=== PATIENT | female | born 1955 | race Two or more races ===

== ENCOUNTER 2021-01-30 18:20 | Inpatient (IN) ==
[2021-01-30 18:44] VITALS: BMI 42.7
[2021-01-30] MEDS ORDERED: SOLU-MEDROL 125 MG IVP STA (18:44)
[2021-01-30] MEDS ORDERED: VENTOLIN HFA (PER PUFF-WITH SPACER) IH ONE (18:44)
--- NOTE | 2021-01-30 18:44 | ED.PDOC ---
General ED Provider: Dr. CHEKO PINEDA MD Chief Complaint: Respiratory Complaint Stated Complaint: mild to mod off and on dry cough for a few days, getting worse, +short of breath, no pain, no fever, +ARGUETA Time Seen by Provider: 01/30/21 18:27 Nursing and Triage Documentation Reviewed and Agree: Yes Does patient meet sepsis criteria?: No System Inflammatory Response Syndrome: Not Applicable Sepsis Protocol: For patient's 13 years and over: Temp is 96.8 and below OR 101 and greater Pulse >90 BPM Resp >20/minute Acutely Altered Mental Status Are patient's symptoms suggestive of a new infection, such as: -Pneumonia -Skin, Soft Tissue -Endocarditis -UTI -Bone, Joint Infection -Implantable Device -Acute Abdominal Infection -Wound Infection -Meningitis -Blood Stream Catheter Infection -Unknown Review of Systems Review Of Systems Constitutional: Reports Malaise; Denies Fever Eyes: Denies Vision change Ears, Nose, Mouth, Throat: Denies Throat pain Respiratory: Reports Cough and Short of air; Denies Stridor Cardiac: Denies Chest pain GI: Denies Abdominal pain : Denies Dysuria Musculoskeletal: Denies Neck pain Skin: Denies Rash Neurological: Denies Cognitive dysfunction All Other Systems: Other Physical Exam Physical Exam Appearance: Reports Ill-appearing Ill-appearing: Mild Pain Distress: None Eyes: Reports ELIZABETH, EOMI and Conjunctiva clear ENT: Reports Oropharynx normal Neck: Supple Respiratory: Reports Airway patent and Wheezes Cardiovascular: Reports RRR GI/: Reports Soft and Nontender Musculoskeletal: Reports ROM intact Skin: Reports Warm and Dry Neurological: Reports Alert and Oriented Psychiatric: Reports Affect appropriate Critical Care Note Critical Care Note Total Critical Care Time (mins): 0 Course Course Orders, Labs, Meds: Orders Category Date Time Status ABG DRAW REQUEST Stat CARDIO 01/30/21 18:40 Ordered EKG-(ED ONLY) Stat CARDIO 01/30/21 18:40 Ordered OXYGEN [ED APPLY O2] .ONCE EMERGENCY 01/30/21 18:40 Ordered ABG COOX Stat LAB 01/30/21 18:41 Ordered BLOOD CULTURE Stat LAB 01/30/21 18:40 Ordered BNP [NT-PROBNP] Stat LAB 01/30/21 Ordered D-DIMER Stat LAB 01/30/21 Ordered LACTIC ACID Stat LAB 01/30/21 18:40 Ordered RESPIRATORY PANEL 2.1 (PCR) Stat LAB 01/30/21 Ordered TROPONIN I Stat LAB 01/30/21 18:40 Ordered UA [URINALYSIS C & S IF INDICATED] Stat LAB 01/30/21 18:40 Uncollected CHEST, 1V AP ONLY Stat RADS 01/30/21 18:40 Ordered Discharge Plan Discharge ED Provider: CHEKO PINEDA Physician Progress Note: []care to Dr Jones at 19:00
[2021-01-30 18:47] LABS: ABG O2 HGB 91.2 % (95-100); BEecf -0.6 (-2.0-3.0); COHb 0.9 (0.5-1.5); HCO3 22.6 (21-28); MetHb 1.7 (0-1.5); TCO2 23.5 (19-24); sO2 92.2 % (94-98); tHb 11.9 g/dl (11.7-17.4)
[2021-01-30 19:15] LABS: TROPONIN I < 0.012 ng/ml (0.0000-0.120)
[2021-01-30 19:18] LABS: BASOPHILS % (AUTO) 0.2 % (0.0-3.0); EOSINOPHILS % (AUTO) 0.2 % (0.0-7.0); IMMATURE GRANULOCYTE % (AUTO) 0.2 % (0.0-5.0); LYMPHOCYTES # (AUTO) 0.9 K/uL (0.60-3.4); LYMPHOCYTES % (AUTO) 21.8 (10.0-50.0); MEAN CORPUSCULAR HEMOGLOBIN 29.5 pg (27.0-31.0); MEAN CORPUSCULAR HGB CONC 32.5 (31.8-35.4); MEAN CORPUSCULAR VOLUME 90.9 fl (81.0-99.0); MONOCYTES # (AUTO) 0.4 K/uL (0.4-2.0); MONOCYTES % (AUTO) 8.9 (0-10); NEUTROPHILS # (AUTO) 2.8 K/ul (2.0-6.9); NEUTROPHILS % (AUTO) 68.7 % (42.2-75.2); PLATELET COUNT 116 10^3/uL (140-440); WHITE BLOOD COUNT 4.03 K/ul (4.6-10.2)
[2021-01-30 19:25] LABS: ALANINE AMINOTRANSFERASE 70.2 U/L (0-35); ALBUMIN 4.06 g/dL (3.5-5.0); ALKALINE PHOSPHATASE 99.4 U/L (53-141); BILIRUBIN,TOTAL 0.35 mg/dL (0.2-1.3); BLOOD UREA NITROGEN 9.7 mg/dL (7-17); CALCIUM 8.96 mg/dL (8.4-10.2); CARBON DIOXIDE 24.5 mmol/L (22-30.0); CHLORIDE 107.1 mmol/L (98-107); CREATININE 0.53 mg/dL (0.60-1.30); GLUCOSE 175.4 mg/dL (74-106); POTASSIUM 3.42 mmol/L (3.5-5.1); SODIUM 139.7 mmol/L (134.5-145); TOTAL PROTEIN 7.34 g/dL (6.3-8.2)
--- NOTE | 2021-01-30 20:21 | DI ---
EXAM: Chest, single view HISTORY: Cough COMPARISON: COVID-19. Shortness of breath FINDINGS / IMPRESSION: Cardiomediastinal contours appear mildly enlarged. There is central pulmonary vascular congestion wi th diffuse interstitial infiltrate. Limited anatomic detail within the lung bases. These findings m ay relate to pulmonary edema and/or pneumonia. Small pleural effusions are not excluded. No pneumot horax.
[2021-01-30] MEDS ORDERED: VEKLURY 200 MG in SODIUM CHLORIDE 250 ML IV ONE (20:32)
[2021-01-30] MEDS ORDERED: VENTOLIN HFA (PER PUFF-WITH SPACER) IH SCH (21:00)
[2021-01-30] MEDS ORDERED: ROCEPHIN 1 GM/50 ML D5W 1 GM/50 ML BAG IV STA (21:04)
[2021-01-30] MEDS ORDERED: ZITHROMAX PO STA (21:06)
[2021-01-31] MEDS ORDERED: ROCEPHIN 1 GM/50 ML D5W 1 GM/50 ML BAG IV STA (00:22)
[2021-01-31] MEDS ORDERED: ZITHROMAX PO STA (00:22)
[2021-01-31] MEDS: SYMBICORT 160-4.5 MCG INHALER IH SCH ×3 (00:32→20:30)
[2021-01-31 05:17] LABS: ABG O2 HGB 91.1 % (95-100); ABG PH 7.45 (7.35-7.45); BEecf -0.4 (-2.0-3.0); COHb 1.9 (0.5-1.5); HCO3 23.6 (21-28); MetHb 0.9 (0-1.5); TCO2 24.6 (19-24); sO2 91.8 % (94-98); tHb 15.7 g/dl (11.7-17.4)
[2021-01-31] MEDS: VENTOLIN HFA (PER PUFF-WITH SPACER) IH SCH ×3 (05:20→20:10)
[2021-01-31] MEDS: PEPCID PO SCH ×2 (05:32→17:42)
[2021-01-31] MEDS ORDERED: VENTOLIN HFA (PER PUFF-WITH SPACER) IH SCH (06:00)
[2021-01-31 06:38] LABS: BASOPHILS % (AUTO) 0.4 % (0.0-3.0); HEMATOCRIT 39.8 % (37.0-47.0); HEMOGLOBIN 12.9 g/dl (12.0-16.0); IMMATURE GRANULOCYTE % (AUTO) 0.8 % (0.0-5.0); LYMPHOCYTES # (AUTO) 0.7 K/uL (0.60-3.4); LYMPHOCYTES % (AUTO) 27.3 (10.0-50.0); MEAN CORPUSCULAR HEMOGLOBIN 29.2 pg (27.0-31.0); MEAN CORPUSCULAR HGB CONC 32.4 (31.8-35.4); MONOCYTES # (AUTO) 0.2 K/uL (0.4-2.0); MONOCYTES % (AUTO) 7.6 (0-10); NEUTROPHILS # (AUTO) 1.5 K/ul (2.0-6.9); NEUTROPHILS % (AUTO) 63.9 % (42.2-75.2); PLATELET COUNT 131 10^3/uL (140-440); RDW COEFFICIENT OF VARIATION 13.9 % (11.6-14.8); RED BLOOD COUNT 4.42 10^6/ul (4.20-5.40); WHITE BLOOD COUNT 2.38 K/ul (4.6-10.2)
[2021-01-31 06:46] LABS: ALANINE AMINOTRANSFERASE 63.4 U/L (0-35); ALBUMIN 3.95 g/dL (3.5-5.0); ALKALINE PHOSPHATASE 86.7 U/L (53-141); ASPARTATE AMINO TRANSFERASE 101.7 U/L (14-36); BILIRUBIN,TOTAL 0.37 mg/dL (0.2-1.3); BLOOD UREA NITROGEN 9.6 mg/dL (7-17); CALCIUM 8.97 mg/dL (8.4-10.2); CARBON DIOXIDE 24.3 mmol/L (22-30.0); CHLORIDE 106.9 mmol/L (98-107); CREATININE 0.45 mg/dL (0.60-1.30); GLUCOSE 251.9 mg/dL (74-106); POTASSIUM 3.55 mmol/L (3.5-5.1); SODIUM 139.4 mmol/L (134.5-145); TOTAL PROTEIN 7.21 g/dL (6.3-8.2)
--- NOTE | 2021-01-31 06:50 | PCM.PROG ---
Date Seen by Provider: 01/31/21 Time Seen by Provider: 06:47 Subjective: This is a 65 yr old lady patient of dr wilhelm admitted with covid pneumonia. she denies any complaints today. We are awaiting home meds list. Objective: Vitals: T=98.1 F, P=94, R=26, WT=382/86, SPO2=92 HEENT: [perrla] Neck: [supple] Lungs: [rhonchi] CVS: rrr Abdomen: soft nt Extremities: [no cyanosis] Neurological: [intact] Skin: [no rashes] Lab/Tests/Diagnostic Imaging: [] (1) COVID-19: Status: Acute Code(s): U07.1 - COVID-19 SNOMED Code(s): 361819417 (2) Acute respiratory failure due to COVID-19: Status: Acute Code(s): U07.1 - COVID-19; J96.00 - Acute respiratory failure, unspecified whether with hypoxia or hypercapnia SNOMED Code(s): 050210418 Assessment: dr liv pederson --this patient is admitted to hospitalist service till dr peck returns Plan: monitoring oximetry, iv rendesivir, monitoring labs see orders
[2021-01-31 06:52] LABS: ACETAMINOPHEN < 10.0 ug/ml (10-30); BLOOD ALCOHOL < 10.0 mg/dL (0.0-50.0); SALICYLATE < 1.00 mg/dL (0-20.0)
[2021-01-31 06:52] LABS: TROPONIN I < 0.012 ng/ml (0.0000-0.120)
[2021-01-31 07:34] LABS: PROTHROMBIN TIME 10.4 SEC (9.3-11.0)
[2021-01-31] MEDS: VITAMIN D PO SCH (08:52)
[2021-01-31] MEDS: DECADRON IM SCH (08:53)
[2021-01-31] MEDS: ASPIRIN CHEWABLE PO SCH (08:53)
[2021-01-31] MEDS: ZINC-220 PO SCH (08:53)
[2021-01-31] MEDS ORDERED: LIPITOR PO SCH ×2 (09:00→21:00)
[2021-01-31] MEDS ORDERED: VEKLURY 200 MG in SODIUM CHLORIDE 250 ML IV ONE (09:00)
[2021-01-31] MEDS ORDERED: BETAPACE PO SCH (09:00)
[2021-01-31] MEDS ORDERED: LOVENOX SUBCUT SCH (09:00)
[2021-01-31] MEDS: ROBITUSSIN DM SYRUP PO PRN ×2 (11:58→19:33)
[2021-01-31] MEDS: ROCEPHIN 1 GM/50 ML D5W 1 GM/50 ML BAG IV SCH (20:00)
[2021-01-31] MEDS: ZESTRIL PO SCH (20:00)
[2021-01-31] MEDS: BETAPACE PO SCH (20:00)
[2021-01-31] MEDS: ZITHROMAX PO SCH (20:00)
[2021-01-31] MEDS: LOVENOX SUBCUT SCH (20:01)
[2021-02-01 04:08] LABS: ABG O2 HGB 91.5 % (95-100); ABG PH 7.44 (7.35-7.45); BEecf 0.3 (-2.0-3.0); COHb 1.6 (0.5-1.5); HCO3 24.5 (21-28); MetHb 0.9 (0-1.5); TCO2 25.6 (19-24); sO2 92.6 % (94-98); tHb 19.5 g/dl (11.7-17.4)
[2021-02-01] MEDS: VENTOLIN HFA (PER PUFF-WITH SPACER) IH SCH ×3 (05:00→20:05)
[2021-02-01] MEDS: PEPCID PO SCH ×2 (05:40→16:30)
[2021-02-01 06:59] LABS: BASOPHILS % (AUTO) 0.1 % (0.0-3.0); HEMATOCRIT 39.2 % (37.0-47.0); HEMOGLOBIN 12.6 g/dl (12.0-16.0); IMMATURE GRANULOCYTE % (AUTO) 0.1 % (0.0-5.0); LYMPHOCYTES # (AUTO) 1.4 K/uL (0.60-3.4); LYMPHOCYTES % (AUTO) 20.1 (10.0-50.0); MEAN CORPUSCULAR HEMOGLOBIN 29.3 pg (27.0-31.0); MEAN CORPUSCULAR HGB CONC 32.1 (31.8-35.4); MEAN CORPUSCULAR VOLUME 91.2 fl (81.0-99.0); MONOCYTES # (AUTO) 0.5 K/uL (0.4-2.0); MONOCYTES % (AUTO) 6.9 (0-10); NEUTROPHILS % (AUTO) 72.8 % (42.2-75.2); PLATELET COUNT 186 10^3/uL (140-440); WHITE BLOOD COUNT 6.92 K/ul (4.6-10.2)
[2021-02-01 07:18] LABS: PROTHROMBIN TIME 10.4 SEC (9.3-11.0)
[2021-02-01 07:25] LABS: TROPONIN I < 0.012 ng/ml (0.0000-0.120)
[2021-02-01] MEDS: ASPIRIN CHEWABLE PO SCH (08:19)
[2021-02-01] MEDS: BETAPACE PO SCH ×2 (08:19→20:20)
[2021-02-01] MEDS: VITAMIN D PO SCH (08:19)
[2021-02-01] MEDS: ZINC-220 PO SCH (08:20)
[2021-02-01] MEDS: ZESTRIL PO SCH ×2 (08:20→20:20)
[2021-02-01] MEDS: DECADRON IM SCH (08:20)
[2021-02-01] MEDS: PLAVIX PO SCH (08:20)
[2021-02-01] MEDS: TRIGLIDE PO SCH (08:20)
[2021-02-01] MEDS: NORVASC PO SCH (08:20)
[2021-02-01] MEDS: SYMBICORT 160-4.5 MCG INHALER IH SCH ×2 (08:21→20:22)
[2021-02-01] MEDS: LOVENOX SUBCUT SCH ×2 (08:22→20:23)
--- NOTE | 2021-02-01 11:14 | PCM.PROG ---
Date Seen by Provider: 02/01/21 Time Seen by Provider: 11:11 Subjective: she is feeling much better---declined Remdesivir---wanting to go home--no nursing staff concerns other than requesing something for a estrada. Objective: Vitals: T=99.8 F, P=70, R=16, PT=438/76, SPO2=93 HEENT: [perr.a] Neck: [supple] Lungs: [clear] CVS: [rrr] Abdomen: [soft nt] Extremities: [no deformity] Neurological: [no deforimity] Skin: [no rashes] Lab/Tests/Diagnostic Imaging: [] (1) COVID-19: Status: Acute Code(s): U07.1 - COVID-19 SNOMED Code(s): 915022001 (2) Acute respiratory failure due to COVID-19: Status: Acute Code(s): U07.1 - COVID-19; J96.00 - Acute respiratory failure, unspecified whether with hypoxia or hypercapnia SNOMED Code(s): 679886364 Assessment: she looks great and asked about going home Plan: i think she is ok to go home when ok with dr wilhelm service---further antbx, oxygenation per dr peck
[2021-02-01] MEDS: VEKLURY 100 MG in SODIUM CHLORIDE 250 ML IV SCH (11:31)
[2021-02-01] MEDS: ZITHROMAX PO SCH (20:20)
[2021-02-01] MEDS: LIPITOR PO SCH (20:21)
[2021-02-01] MEDS: ROCEPHIN 1 GM/50 ML D5W 1 GM/50 ML BAG IV SCH (20:21)
[2021-02-02] MEDS: VENTOLIN HFA (PER PUFF-WITH SPACER) IH SCH ×3 (05:35→20:15)
[2021-02-02] MEDS: PEPCID PO SCH ×2 (06:07→17:51)
[2021-02-02 06:21] LABS: ABG O2 HGB 90.3 % (95-100); ABG PH 7.44 (7.35-7.45); BEecf 1.6 (-2.0-3.0); COHb 0.8 (0.5-1.5); HCO3 25.8 (21-28); MetHb 1.3 (0-1.5); sO2 91.2 % (94-98)
[2021-02-02 08:05] LABS: HEMATOCRIT 38.9 % (37.0-47.0); HEMOGLOBIN 12.7 g/dl (12.0-16.0); IMMATURE GRANULOCYTE % (AUTO) 0.3 % (0.0-5.0); LYMPHOCYTES # (AUTO) 1.1 K/uL (0.60-3.4); LYMPHOCYTES % (AUTO) 15.9 (10.0-50.0); MEAN CORPUSCULAR HEMOGLOBIN 29.5 pg (27.0-31.0); MEAN CORPUSCULAR HGB CONC 32.6 (31.8-35.4); MEAN CORPUSCULAR VOLUME 90.3 fl (81.0-99.0); MONOCYTES # (AUTO) 0.5 K/uL (0.4-2.0); MONOCYTES % (AUTO) 7.1 (0-10); NEUTROPHILS # (AUTO) 5.3 K/ul (2.0-6.9); NEUTROPHILS % (AUTO) 76.7 % (42.2-75.2); PLATELET COUNT 182 10^3/uL (140-440); RDW COEFFICIENT OF VARIATION 13.9 % (11.6-14.8); RED BLOOD COUNT 4.31 10^6/ul (4.20-5.40); WHITE BLOOD COUNT 6.94 K/ul (4.6-10.2)
[2021-02-02 08:41] LABS: ALANINE AMINOTRANSFERASE 42.7 U/L (0-35); ALBUMIN 3.87 g/dL (3.5-5.0); ALKALINE PHOSPHATASE 79.9 U/L (53-141); ASPARTATE AMINO TRANSFERASE 75.9 U/L (14-36); BILIRUBIN,TOTAL 0.44 mg/dL (0.2-1.3); BLOOD UREA NITROGEN 17.9 mg/dL (7-17); CALCIUM 9.08 mg/dL (8.4-10.2); CARBON DIOXIDE 27.7 mmol/L (22-30.0); CREATININE 0.61 mg/dL (0.60-1.30); GLUCOSE 108.4 mg/dL (74-106); POTASSIUM 3.53 mmol/L (3.5-5.1); SODIUM 140.6 mmol/L (134.5-145); TOTAL PROTEIN 7.28 g/dL (6.3-8.2)
[2021-02-02] MEDS: ASPIRIN CHEWABLE PO SCH (09:32)
[2021-02-02] MEDS: VITAMIN D PO SCH (09:32)
[2021-02-02] MEDS: ZINC-220 PO SCH (09:33)
[2021-02-02] MEDS: PLAVIX PO SCH (09:33)
[2021-02-02] MEDS: BETAPACE PO SCH ×2 (09:33→21:01)
[2021-02-02] MEDS: NORVASC PO SCH (09:33)
[2021-02-02] MEDS: TRIGLIDE PO SCH (09:33)
[2021-02-02] MEDS: ZESTRIL PO SCH ×2 (09:34→21:01)
[2021-02-02] MEDS: DECADRON IM SCH (09:34)
[2021-02-02] MEDS: SYMBICORT 160-4.5 MCG INHALER IH SCH ×2 (09:35→21:00)
[2021-02-02] MEDS: LOVENOX SUBCUT SCH ×2 (09:35→21:01)
[2021-02-02 11:11] LABS: C-REACTIVE PROTEIN 39 mg/L (0-10)
[2021-02-02] MEDS: VEKLURY 100 MG in SODIUM CHLORIDE 250 ML IV SCH (13:03)
[2021-02-02] MEDS ORDERED: NITROSTAT SL PRN (15:20)
[2021-02-02] MEDS ORDERED: ATROPINE SULFATE PFS IVP PRN (15:20)
[2021-02-02] MEDS: TYLENOL PO PRN (15:48)
[2021-02-02] MEDS: ROCEPHIN 1 GM/50 ML D5W 1 GM/50 ML BAG IV SCH (21:00)
[2021-02-02] MEDS: LIPITOR PO SCH (21:00)
--- NOTE | 2021-02-02 23:13 | PCM.PROG ---
Date Seen by Provider: 02/02/21 Time Seen by Provider: 12:00 Subjective: Date of admit 01/31 with dx of COVID pneumonia with hypoxia. Says she feels somewhat better. Full code, patient of Dr. Dumas. Objective: Vitals: T=97.9 F, P=60, R=20, QW=062/59, SPO2=95 HEENT: [WNL] Neck: [WNL] Lungs: [No wheezes, decreased breath sounds.] CVS: [RRR , no m] Abdomen: [soft] Extremities: [intact] Neurological: [intact] Skin: [intact] Lab/Tests/Diagnostic Imaging: [see chart] (1) Pneumonia due to 2019-nCoV: Status: Acute Code(s): U07.1 - COVID-19; J12.82 - Pneumonia due to coronavirus disease 2018 SNOMED Code(s): 514486015006044802 Assessment: On rocephin, refused remdesivir. See orders. (2) Acute respiratory failure due to COVID-19: Status: Acute Code(s): U07.1 - COVID-19; J96.00 - Acute respiratory failure, unspecified whether with hypoxia or hypercapnia SNOMED Code(s): 084228262 Assessment: On vapotherm per RT, I believe is currently 100% O2 at 40 L. Maintaining sat in low 90's plus. Full code. Plan: 1. COVID pneumonia - continue current tx, rocephin, refused rem. 2. Resp. failure - on vapotherm and holding OK. RT following closely.
[2021-02-03] MEDS: VENTOLIN HFA (PER PUFF-WITH SPACER) IH SCH ×3 (04:30→20:55)
[2021-02-03 05:24] LABS: HEMATOCRIT 37.3 % (37.0-47.0); HEMOGLOBIN 12.1 g/dl (12.0-16.0); IMMATURE GRANULOCYTE % (AUTO) 0.6 % (0.0-5.0); LYMPHOCYTES # (AUTO) 1.1 K/uL (0.60-3.4); MEAN CORPUSCULAR HEMOGLOBIN 29.2 pg (27.0-31.0); MEAN CORPUSCULAR HGB CONC 32.4 (31.8-35.4); MEAN CORPUSCULAR VOLUME 89.9 fl (81.0-99.0); MONOCYTES # (AUTO) 0.5 K/uL (0.4-2.0); MONOCYTES % (AUTO) 6.5 (0-10); NEUTROPHILS # (AUTO) 5.5 K/ul (2.0-6.9); NEUTROPHILS % (AUTO) 77.9 % (42.2-75.2); PLATELET COUNT 199 10^3/uL (140-440); RDW COEFFICIENT OF VARIATION 13.7 % (11.6-14.8); RED BLOOD COUNT 4.15 10^6/ul (4.20-5.40); WHITE BLOOD COUNT 7.09 K/ul (4.6-10.2)
[2021-02-03 05:33] LABS: ABG O2 HGB 85.3 % (95-100); ABG PH 7.49 (7.35-7.45); BEecf 3.4 (-2.0-3.0); COHb 1.1 (0.5-1.5); HCO3 26.7 (21-28); MetHb 0.6 (0-1.5); TCO2 27.8 (19-24); sO2 85.5 % (94-98)
[2021-02-03 05:41] LABS: ALANINE AMINOTRANSFERASE 35.6 U/L (0-35); ALBUMIN 3.67 g/dL (3.5-5.0); ALKALINE PHOSPHATASE 76.5 U/L (53-141); ASPARTATE AMINO TRANSFERASE 60.8 U/L (14-36); BILIRUBIN,TOTAL 0.47 mg/dL (0.2-1.3); BLOOD UREA NITROGEN 16.9 mg/dL (7-17); CALCIUM 9.38 mg/dL (8.4-10.2); CARBON DIOXIDE 26.4 mmol/L (22-30.0); CHLORIDE 107.3 mmol/L (98-107); CREATININE 0.59 mg/dL (0.60-1.30); GLUCOSE 100.4 mg/dL (74-106); POTASSIUM 3.54 mmol/L (3.5-5.1); SODIUM 139.9 mmol/L (134.5-145); TOTAL PROTEIN 6.99 g/dL (6.3-8.2)
[2021-02-03] MEDS: TYLENOL PO PRN (05:44)
[2021-02-03] MEDS: PEPCID PO SCH ×2 (05:44→17:10)
[2021-02-03] MEDS: LOVENOX SUBCUT SCH ×2 (09:58→21:38)
[2021-02-03] MEDS: DECADRON IM SCH (09:59)
[2021-02-03] MEDS: VITAMIN D PO SCH (09:59)
[2021-02-03] MEDS: ZINC-220 PO SCH (10:00)
[2021-02-03] MEDS: ASPIRIN CHEWABLE PO SCH (10:00)
[2021-02-03] MEDS: ZESTRIL PO SCH ×2 (10:00→21:37)
[2021-02-03] MEDS: NORVASC PO SCH (10:00)
[2021-02-03] MEDS: PLAVIX PO SCH (10:00)
[2021-02-03] MEDS: BETAPACE PO SCH ×2 (10:00→21:38)
[2021-02-03] MEDS: TRIGLIDE PO SCH (10:01)
[2021-02-03] MEDS: SYMBICORT 160-4.5 MCG INHALER IH SCH ×2 (12:23→21:48)
[2021-02-03] MEDS: VEKLURY 100 MG in SODIUM CHLORIDE 250 ML IV SCH (19:19)
[2021-02-03] MEDS ORDERED: ROCEPHIN 1 GM/50 ML D5W 1 GM/50 ML BAG IV SCH (21:00)
[2021-02-03] MEDS: ROCEPHIN 1 GM/50 ML D5W 1 GM/50 ML BAG IV SCH (21:37)
[2021-02-03] MEDS: LIPITOR PO SCH (21:38)
[2021-02-04] MEDS: VENTOLIN HFA (PER PUFF-WITH SPACER) IH SCH ×3 (04:15→21:40)
[2021-02-04 05:04] LABS: HEMATOCRIT 37.6 % (37.0-47.0); HEMOGLOBIN 12.2 g/dl (12.0-16.0); IMMATURE GRANULOCYTE # (AUTO) 0.1 (0.0-1.0); IMMATURE GRANULOCYTE % (AUTO) 0.7 % (0.0-5.0); LYMPHOCYTES # (AUTO) 1.1 K/uL (0.60-3.4); MEAN CORPUSCULAR HEMOGLOBIN 29.2 pg (27.0-31.0); MEAN CORPUSCULAR HGB CONC 32.4 (31.8-35.4); MONOCYTES # (AUTO) 0.4 K/uL (0.4-2.0); MONOCYTES % (AUTO) 5.8 (0-10); NEUTROPHILS # (AUTO) 5.6 K/ul (2.0-6.9); NEUTROPHILS % (AUTO) 78.5 % (42.2-75.2); PLATELET COUNT 242 10^3/uL (140-440); RDW COEFFICIENT OF VARIATION 13.7 % (11.6-14.8); RED BLOOD COUNT 4.18 10^6/ul (4.20-5.40); WHITE BLOOD COUNT 7.18 K/ul (4.6-10.2)
[2021-02-04 05:22] LABS: ALANINE AMINOTRANSFERASE 31.2 U/L (0-35); ALBUMIN 3.51 g/dL (3.5-5.0); ALKALINE PHOSPHATASE 74.2 U/L (53-141); ASPARTATE AMINO TRANSFERASE 52.1 U/L (14-36); BILIRUBIN,TOTAL 0.49 mg/dL (0.2-1.3); BLOOD UREA NITROGEN 21.1 mg/dL (7-17); CALCIUM 9.21 mg/dL (8.4-10.2); CARBON DIOXIDE 25.3 mmol/L (22-30.0); CHLORIDE 108.1 mmol/L (98-107); CREATININE 0.56 mg/dL (0.60-1.30); GLUCOSE 97.7 mg/dL (74-106); POTASSIUM 3.54 mmol/L (3.5-5.1); SODIUM 140.9 mmol/L (134.5-145); TOTAL PROTEIN 6.88 g/dL (6.3-8.2)
[2021-02-04] MEDS: PEPCID PO SCH ×2 (05:55→17:10)
[2021-02-04 08:12] LABS: ABG O2 HGB 96.7 % (95-100); BEecf 2.3 (-2.0-3.0); COHb 0.6 (0.5-1.5); HCO3 24.8 (21-28); MetHb 1.1 (0-1.5); TCO2 25.7 (19-24); sO2 99.3 % (94-98); tHb 12.4 g/dl (11.7-17.4)
[2021-02-04 08:13] LABS: ABG PH 7.54 (7.35-7.45)
[2021-02-04] MEDS: DECADRON IM SCH (09:27)
[2021-02-04] MEDS: LOVENOX SUBCUT SCH (09:27)
[2021-02-04] MEDS: ZINC-220 PO SCH (09:28)
[2021-02-04] MEDS: VITAMIN D PO SCH (09:28)
[2021-02-04] MEDS: BETAPACE PO SCH ×2 (09:28→20:22)
[2021-02-04] MEDS: ZESTRIL PO SCH ×2 (09:29→20:22)
[2021-02-04] MEDS: ASPIRIN CHEWABLE PO SCH (09:29)
[2021-02-04] MEDS: PLAVIX PO SCH (09:29)
[2021-02-04] MEDS: NORVASC PO SCH (09:29)
[2021-02-04] MEDS: TRIGLIDE PO SCH (09:29)
[2021-02-04] MEDS: SYMBICORT 160-4.5 MCG INHALER IH SCH ×2 (09:37→20:31)
[2021-02-04] MEDS: VEKLURY 100 MG in SODIUM CHLORIDE 250 ML IV SCH (12:27)
[2021-02-04] MEDS: ROCEPHIN 1 GM/50 ML D5W 1 GM/50 ML BAG IV SCH (20:22)
[2021-02-04] MEDS: LIPITOR PO SCH (20:22)
--- NOTE | 2021-02-05 00:21 | PCM.PROG ---
Date Seen by Provider: 02/04/21 Time Seen by Provider: 09:00 Subjective: Admit date 01/31. Dx COVID pneumonia with hypoxia. See HPI. No new complaints, just tired. Objective: Vitals: T=98.4 F, P=49, R=19, ET=604/60, SPO2=90 HEENT: [wnl] Neck: supple[] Lungs: [rhonchi, diminished] CVS: [rrr] Abdomen: [soft] Extremities: intact Neurological: [intact] Skin: wnl[] Lab/Tests/Diagnostic Imaging: [See chart. Follow ABG's] (1) Pneumonia due to 2019-nCoV: Status: Acute Code(s): U07.1 - COVID-19; J12.82 - Pneumonia due to coronavirus disease 2019 SNOMED Code(s): 490008236238615603 Assessment: On remdesivir and decadron. Standard tx. Empiric abx as well. (2) Acute respiratory failure due to COVID-19: Status: Acute Code(s): U07.1 - COVID-19; J96.00 - Acute respiratory failure, unspecified whether with hypoxia or hypercapnia SNOMED Code(s): 803638280 Assessment: Maintaining oxygen sat low to mid 90's vapotherm with mask. RT managing. Following ABG's. Full code. Plan: 1. COVID pneumonia - continue rem. and decadron, abx, no changes. 2. Hypoxia - maximizing vapotherm with mask, O2 sat still over 90, so continue to monitor.
[2021-02-05] MEDS: ATIVAN IVP PRN ×8 (00:30→23:23)
[2021-02-05] MEDS ORDERED: HALDOL IVP ONE (02:52)
[2021-02-05] MEDS: VENTOLIN HFA (PER PUFF-WITH SPACER) IH SCH ×3 (04:30→20:30)
[2021-02-05] MEDS ORDERED: HALDOL IVP STA (04:53)
[2021-02-05 05:37] LABS: BEecf 5.7 (-2.0-3.0); COHb 1.5 (0.5-1.5); HCO3 28.6 (21-28); MetHb 1.1 (0-1.5); TCO2 29.7 (19-24); sO2 96.2 % (94-98); tHb 12.4 g/dl (11.7-17.4)
[2021-02-05 05:38] LABS: ABG PH 7.52 (7.35-7.45)
[2021-02-05] MEDS: PEPCID PO SCH ×2 (05:49→16:04)
[2021-02-05 07:53] LABS: BASOPHILS % (AUTO) 0.1 % (0.0-3.0); EOSINOPHILS % (AUTO) 0.1 % (0.0-7.0); HEMATOCRIT 38.6 % (37.0-47.0); HEMOGLOBIN 12.5 g/dl (12.0-16.0); IMMATURE GRANULOCYTE # (AUTO) 0.1 (0.0-1.0); IMMATURE GRANULOCYTE % (AUTO) 0.7 % (0.0-5.0); LYMPHOCYTES # (AUTO) 0.9 K/uL (0.60-3.4); LYMPHOCYTES % (AUTO) 8.5 (10.0-50.0); MEAN CORPUSCULAR HEMOGLOBIN 29.2 pg (27.0-31.0); MEAN CORPUSCULAR HGB CONC 32.4 (31.8-35.4); MEAN CORPUSCULAR VOLUME 90.2 fl (81.0-99.0); MONOCYTES # (AUTO) 0.5 K/uL (0.4-2.0); MONOCYTES % (AUTO) 4.4 (0-10); NEUTROPHILS # (AUTO) 9.5 K/ul (2.0-6.9); NEUTROPHILS % (AUTO) 86.2 % (42.2-75.2); PLATELET COUNT 279 10^3/uL (140-440); RDW COEFFICIENT OF VARIATION 13.3 % (11.6-14.8); RED BLOOD COUNT 4.28 10^6/ul (4.20-5.40); WHITE BLOOD COUNT 10.96 K/ul (4.6-10.2)
[2021-02-05 08:05] LABS: ALANINE AMINOTRANSFERASE 28.5 U/L (0-35); ALBUMIN 3.55 g/dL (3.5-5.0); ALKALINE PHOSPHATASE 81.8 U/L (53-141); ASPARTATE AMINO TRANSFERASE 48.5 U/L (14-36); BILIRUBIN,TOTAL 0.53 mg/dL (0.2-1.3); BLOOD UREA NITROGEN 21.6 mg/dL (7-17); CALCIUM 9.25 mg/dL (8.4-10.2); CARBON DIOXIDE 26.4 mmol/L (22-30.0); CHLORIDE 108.9 mmol/L (98-107); CREATININE 0.59 mg/dL (0.60-1.30); GLUCOSE 104.8 mg/dL (74-106); POTASSIUM 3.51 mmol/L (3.5-5.1); SODIUM 142.3 mmol/L (134.5-145); TOTAL PROTEIN 6.94 g/dL (6.3-8.2)
[2021-02-05] MEDS ORDERED: VISTARIL INJ IM STA (08:08)
[2021-02-05] MEDS ORDERED: VISTARIL INJ IM ONE (08:09)
--- NOTE | 2021-02-05 08:20 | PCM.PROG ---
Date Seen by Provider: 02/05/21 Time Seen by Provider: 08:15 Subjective: Patient Remains very restless, requirng IV lorazepam and Haldol during the night through this AM Despite this continued to remain restless. Administered IM Hydroxyzine. Currently resting more comfortably, with easy nonloabored breathing Objective: Vitals: T=98.1 F, P=72, R=28, GS=819/42, SPO2=93 HEENT: CLEAR Neck: SUPPLE Lungs: CTA CVS: HRRR Abdomen: SOFT NON TENDER Extremities: NEG EDEMA Neurological: sEDATE FROM MEDS Skin: [] Lab/Tests/Diagnostic Imaging: [] (1) Pneumonia due to 2019-nCoV: Status: Acute Code(s): U07.1 - COVID-19; J12.82 - Pneumonia due to coronavirus disease 2018 SNOMED Code(s): 449250111978180619 (2) Acute respiratory failure due to COVID-19: Status: Acute Code(s): U07.1 - COVID-19; J96.00 - Acute respiratory failure, unspecified whether with hypoxia or hypercapnia SNOMED Code(s): 606257199 (3) Psychomotor restlessness: Status: Acute Code(s): R45.1 - Restlessness and agitation SNOMED Code(s): 914857547 Plan: MEDS ORDERED RE CHECK LAB IN AM
[2021-02-05] MEDS: ASPIRIN CHEWABLE PO SCH (09:19)
[2021-02-05] MEDS: BETAPACE PO SCH ×2 (09:20→21:37)
[2021-02-05] MEDS: PLAVIX PO SCH (09:20)
[2021-02-05] MEDS: TRIGLIDE PO SCH (09:20)
[2021-02-05] MEDS: NORVASC PO SCH (09:20)
[2021-02-05] MEDS: SYMBICORT 160-4.5 MCG INHALER IH SCH ×2 (09:21→21:48)
[2021-02-05] MEDS: ZINC-220 PO SCH (09:21)
[2021-02-05] MEDS: VITAMIN D PO SCH (09:21)
[2021-02-05] MEDS: ZESTRIL PO SCH ×2 (09:21→21:49)
[2021-02-05] MEDS: LOVENOX SUBCUT SCH (09:25)
[2021-02-05] MEDS: DECADRON IVP SCH (09:26)
[2021-02-05] MEDS ORDERED: VALIUM SYRINGE IVP ONE ×2 (09:40→10:00)
[2021-02-05] MEDS: GEODON IM PRN ×3 (11:36→21:34)
[2021-02-05] MEDS: ROCEPHIN 1 GM/50 ML D5W 1 GM/50 ML BAG IV SCH (21:02)
[2021-02-05] MEDS: LIPITOR PO SCH (21:48)
[2021-02-06] MEDS ORDERED: VENTOLIN HFA (PER PUFF-WITH SPACER) IH ONE (00:56)
[2021-02-06] MEDS: GEODON IM PRN ×2 (01:47→03:45)
[2021-02-06] MEDS: ATIVAN IVP PRN (03:00)
[2021-02-06 04:13] LABS: ABG O2 HGB 77.1 % (95-100); ABG PH 7.44 (7.35-7.45); BEecf 0.9 (-2.0-3.0); HCO3 25.1 (21-28); TCO2 26.2 (19-24); sO2 83.5 % (94-98); tHb 19.9 g/dl (11.7-17.4)
[2021-02-06] MEDS: VENTOLIN HFA (PER PUFF-WITH SPACER) IH SCH (04:30)
[2021-02-06] MEDS: PEPCID PO SCH ×2 (05:47→17:34)
[2021-02-06 05:59] LABS: BASOPHILS % (AUTO) 0.2 % (0.0-3.0); EOSINOPHILS % (AUTO) 0.1 % (0.0-7.0); HEMATOCRIT 40.8 % (37.0-47.0); HEMOGLOBIN 13.1 g/dl (12.0-16.0); IMMATURE GRANULOCYTE # (AUTO) 0.2 (0.0-1.0); IMMATURE GRANULOCYTE % (AUTO) 0.9 % (0.0-5.0); LYMPHOCYTES # (AUTO) 1.2 K/uL (0.60-3.4); LYMPHOCYTES % (AUTO) 7.5 (10.0-50.0); MEAN CORPUSCULAR HGB CONC 32.1 (31.8-35.4); MEAN CORPUSCULAR VOLUME 90.5 fl (81.0-99.0); MONOCYTES # (AUTO) 0.9 K/uL (0.4-2.0); MONOCYTES % (AUTO) 5.4 (0-10); NEUTROPHILS # (AUTO) 13.9 K/ul (2.0-6.9); NEUTROPHILS % (AUTO) 85.9 % (42.2-75.2); PLATELET COUNT 356 10^3/uL (140-440); RDW COEFFICIENT OF VARIATION 13.4 % (11.6-14.8); RED BLOOD COUNT 4.51 10^6/ul (4.20-5.40); WHITE BLOOD COUNT 16.22 K/ul (4.6-10.2)
[2021-02-06 06:15] LABS: ALANINE AMINOTRANSFERASE 28.2 U/L (0-35); ALBUMIN 3.69 g/dL (3.5-5.0); ALKALINE PHOSPHATASE 96.6 U/L (53-141); BILIRUBIN,TOTAL 0.65 mg/dL (0.2-1.3); BLOOD UREA NITROGEN 24.6 mg/dL (7-17); CALCIUM 9.75 mg/dL (8.4-10.2); CARBON DIOXIDE 25.4 mmol/L (22-30.0); CHLORIDE 109.8 mmol/L (98-107); CREATININE 0.63 mg/dL (0.60-1.30); GLUCOSE 116.9 mg/dL (74-106); POTASSIUM 3.28 mmol/L (3.5-5.1); SODIUM 142.4 mmol/L (134.5-145); TOTAL PROTEIN 7.3 g/dL (6.3-8.2)
[2021-02-06] MEDS: VALIUM SYRINGE IVP PRN ×3 (07:37→18:49)
[2021-02-06] MEDS ORDERED: DIPRIVAN 20 ML VIAL IVP ONE ×2 (07:50→07:56)
[2021-02-06] MEDS ORDERED: SUBLIMAZE IVP ONE ×4 (07:50→21:09)
[2021-02-06] MEDS ORDERED: VERSED IVP ONE (07:50)
[2021-02-06] MEDS ORDERED: ANECTINE IVP STA (07:50)
[2021-02-06] MEDS ORDERED: VERSED ONE (07:55)
[2021-02-06] MEDS ORDERED: DIPRIVAN 1,000 MG/100 ML VIAL 1,000 MG/100 ML INFUS..BTL IV ONE ×2 (07:55→11:26)
[2021-02-06] MEDS ORDERED: SUBLIMAZE ONE (07:55)
[2021-02-06] MEDS ORDERED: ANECTINE ONE (07:56)
[2021-02-06] MEDS ORDERED: ZEMURON IVP ONE ×10 (08:05→14:35)
[2021-02-06] MEDS ORDERED: ZEMURON ONE ×4 (08:10→12:46)
[2021-02-06] MEDS: DIPRIVAN 1,000 MG/100 ML VIAL 1,000 MG/100 ML INFUS..BTL IV SCH ×4 (08:40→21:03)
[2021-02-06] MEDS ORDERED: PHENYLEPHRINE IVP ONE (08:45)
[2021-02-06] MEDS: SODIUM CHLORIDE 1,000 ML IV SCH ×2 (08:46→21:56)
[2021-02-06] MEDS ORDERED: EPHEDRINE SULFATE IVP ONE ×2 (08:51→09:10)
--- NOTE | 2021-02-06 09:14 | DI ---
EXAM: CHEST FRONTAL VIEW HISTORY: Shortness of breath, respiratory failure FINDINGS: Compared to 01/30/2021. Stable mediastinum. There is an endotracheal tube present in goo d position radiographically ending superimposed over the tracheal air column 3.5 cm above the andrae. There is moderately severe infiltrate in the right lung and less so on the left. Findings are cons istent with pneumonia and / or pulmonary edema. These infiltrates are new since prior study. No vis ible pneumothorax or pleural fluid. IMPRESSION: There is moderately severe infiltrate in the right lung and less so on the left. Finding s are consistent with pneumonia and / or pulmonary edema.
[2021-02-06 09:37] LABS: ABG PH 7.41 (7.35-7.45); BEecf 2.7 (-2.0-3.0); HCO3 27.3 (21-28); MetHb 0.7 (0-1.5); TCO2 28.6 (19-24); sO2 91.2 % (94-98)
--- NOTE | 2021-02-06 09:54 | ED.PDOC ---
Procedures - IV/Art Line Insertion Location: rt radial Type of Line: Arterial Line Invasive Line/IV Catheter Gauge: 22 Number of Attempts: 1 Blood Return Positive: Yes Invasive Line/IV Flushes Without Difficulty: Yes Conscious Sedation - Pre-op Assessment Weight: 226 lb - Medical History Past Medical History: Unknown - Physical Exam Heart Rate/Rhythm: Regular Rhythm, Regular Rate
--- NOTE | 2021-02-06 09:58 | ED.PDOC ---
Procedures - Intubation Indication: Present: Respiratory Insufficiency Time of Intubation: 08:40 Medications: Yes: Succinylcholine, Versed, Propofol, Other (fentanyl, phenylephrine, ephedrine , propofol drip see nursing notes for dosages and times) Type of Tube Used: Endotracheal Tube Size: 7 Cricoid Pressure Used: No Tube Mcgee Used: Yes Position of Tube at Lip: 20cm Number of Attempts: 1 Suction Used: No Glidescope Used: No CO2 Detector Used: Yes Lung Sounds Equal Bilaterally: Yes Intubation Complications: Present: No complications Tube Inserted By: Sheldon Umanzor CRNA Tube Placement Verified by X-ray: Yes Conscious Sedation - Pre-op Assessment Weight: 226 lb - Medical History Past Medical History: Unknown - Physical Exam Heart Rate/Rhythm: Regular Rhythm, Regular Rate
[2021-02-06] MEDS: ZEMURON IVP ONE ×2 (10:15→11:28)
[2021-02-06] MEDS: ASPIRIN CHEWABLE PO SCH (10:38)
[2021-02-06] MEDS: PLAVIX PO SCH (10:40)
[2021-02-06] MEDS: NORVASC PO SCH (10:40)
[2021-02-06] MEDS: BETAPACE PO SCH ×2 (10:40→22:17)
[2021-02-06] MEDS: SYMBICORT 160-4.5 MCG INHALER IH SCH ×2 (10:40→22:18)
[2021-02-06] MEDS: ZINC-220 PO SCH (10:41)
[2021-02-06] MEDS: TRIGLIDE PO SCH (10:41)
[2021-02-06] MEDS: ZESTRIL PO SCH ×2 (10:41→22:19)
[2021-02-06] MEDS: VITAMIN D PO SCH (10:41)
[2021-02-06] MEDS ORDERED: ZEMURON IVP STA ×3 (11:25→22:27)
[2021-02-06 11:43] LABS: ABG O2 HGB 85.5 % (95-100); ABG PH 7.37 (7.35-7.45); BEecf -0.4 (-2.0-3.0); COHb 2.1 (0.5-1.5); HCO3 24.9 (21-28); MetHb 0.8 (0-1.5); TCO2 26.2 (19-24); sO2 88.3 % (94-98); tHb 12.8 g/dl (11.7-17.4)
[2021-02-06] MEDS: DECADRON IVP SCH (16:17)
[2021-02-06] MEDS ORDERED: TRANSDERM-SCOP 1.5 MG PATCH TD SCH (17:00)
[2021-02-06] MEDS: LOVENOX SUBCUT SCH (17:18)
[2021-02-06] MEDS: SUBLIMAZE IVP PRN ×3 (18:17→21:59)
[2021-02-06] MEDS ORDERED: TYLENOL RC PRN (18:19)
[2021-02-06] MEDS ORDERED: LOPRESSOR IVP STA (20:39)
[2021-02-06 20:59] LABS: BASOPHILS % (AUTO) 0.2 % (0.0-3.0); EOSINOPHILS # (AUTO) 0.1 K/ul (0.0-0.7); EOSINOPHILS % (AUTO) 0.2 % (0.0-7.0); HEMATOCRIT 41.2 % (37.0-47.0); HEMOGLOBIN 13.2 g/dl (12.0-16.0); IMMATURE GRANULOCYTE # (AUTO) 0.3 (0.0-1.0); IMMATURE GRANULOCYTE % (AUTO) 1.2 % (0.0-5.0); LYMPHOCYTES # (AUTO) 1.5 K/uL (0.60-3.4); LYMPHOCYTES % (AUTO) 5.6 (10.0-50.0); MEAN CORPUSCULAR HEMOGLOBIN 29.7 pg (27.0-31.0); MEAN CORPUSCULAR VOLUME 92.8 fl (81.0-99.0); MONOCYTES # (AUTO) 1.2 K/uL (0.4-2.0); MONOCYTES % (AUTO) 4.5 (0-10); NEUTROPHILS # (AUTO) 23.4 K/ul (2.0-6.9); NEUTROPHILS % (AUTO) 88.3 % (42.2-75.2); PLATELET COUNT 446 10^3/uL (140-440); RDW COEFFICIENT OF VARIATION 13.9 % (11.6-14.8); RED BLOOD COUNT 4.44 10^6/ul (4.20-5.40); WHITE BLOOD COUNT 26.46 K/ul (4.6-10.2)
[2021-02-06 21:12] LABS: ALANINE AMINOTRANSFERASE 26.8 U/L (0-35); ALBUMIN 3.68 g/dL (3.5-5.0); ASPARTATE AMINO TRANSFERASE 49.9 U/L (14-36); BILIRUBIN,TOTAL 0.65 mg/dL (0.2-1.3); BLOOD UREA NITROGEN 24.9 mg/dL (7-17); CALCIUM 9.6 mg/dL (8.4-10.2); CARBON DIOXIDE 23.5 mmol/L (22-30.0); CHLORIDE 111.2 mmol/L (98-107); CREATINE KINASE 170.8 U/L (30-135); CREATININE 0.88 mg/dL (0.60-1.30); GLUCOSE 199.6 mg/dL (74-106); POTASSIUM 3.68 mmol/L (3.5-5.1); SODIUM 145.2 mmol/L (134.5-145); TOTAL PROTEIN 7.37 g/dL (6.3-8.2)
[2021-02-06 21:23] LABS: TROPONIN I 0.152 ng/ml (0.0000-0.120)
[2021-02-06 21:27] LABS: CREATINE KINASE MB 1.46 ng/ml (0.0-2.38)
[2021-02-06 22:04] VITALS: TEMP 101.5
[2021-02-06] MEDS: LIPITOR PO SCH (22:18)
[2021-02-06] MEDS: ROCEPHIN 1 GM/50 ML D5W 1 GM/50 ML BAG IV SCH (22:53)
[2021-02-06 23:42] VITALS: BP 144/91
[2021-02-07] MEDS ORDERED: PHENYLEPHRINE ONE (00:15)
--- NOTE | 2021-02-07 00:18 | DI ---
EXAM: AP single view of the chest. HISTORY: SPO2 74% on ventilator. FINDINGS: The endotracheal tube is in adequate position. The cardiac silhouette and pulmonary vascul ature are within normal limits. There is a right pneumothorax with pleural separation measuring 2.7 cm. There is a left pneumothorax with pleural separation measuring 1.1 cm. There are bilateral infil trates and consolidation, consistent with pneumonia. Impression: Bilateral pneumothoraces as described. Bilateral pneumonia as described. Endotracheal tube as described. Critical result: I personally discussed Impression #1 with the patient's ER physician (Dr. Jones) o n 02/07/2021 at 12:13 a.m.
[2021-02-07] MEDS ORDERED: DILAUDID 1 MG/ML SYRINGE IVP PRN (00:53)
[2021-02-07] MEDS ORDERED: ATIVAN IVP PRN (00:55)
[2021-02-07] MEDS: DIPRIVAN 1,000 MG/100 ML VIAL 1,000 MG/100 ML INFUS..BTL IV SCH (00:58)
--- NOTE | 2021-02-07 01:07 | PCM.PROG ---
Date Seen by Provider: 02/07/21 Time Seen by Provider: 00:59 Subjective: she is getting worse---had worsening resp difficulties today and had to be intubated---family aware---despite this her oxygen level continues to be low ---cxr ordered--my understanding is that she still has not been accepted for transfer to another facility but is on a waiting list. Objective: Vitals: T=101.5 F, P=140, R=20, VY=394/84, SPO2=75 HEENT: [] Neck: [] Lungs: [decreased breath sounds bilaterally] CVS: [] Abdomen: [] Extremities: [] Neurological: [] Skin: [] Lab/Tests/Diagnostic Imaging: [] (1) Pneumonia due to 2019-nCoV: Status: Acute Code(s): U07.1 - COVID-19; J12.82 - Pneumonia due to coronavirus disease 2018 SNOMED Code(s): 689533079661826440 (2) Acute respiratory failure due to COVID-19: Status: Acute Code(s): U07.1 - COVID-19; J96.00 - Acute respiratory failure, unspecified whether with hypoxia or hypercapnia SNOMED Code(s): 503907998 (3) Psychomotor restlessness: Status: Acute Code(s): R45.1 - Restlessness and agitation SNOMED Code(s): 965413840 Assessment: her cxr did reveal bilaleral pneumothorax. I discussed this with her daughter Maria E--her Kamran just received some morphine and is unable to make a decision. Maria E indicated she discussed this with her brother and her sister indicated she was ready for comfort measures and declined chest tube placement. I agree with this as i think in light of her covid 19 pnemonia this would not be beneficial. Maria E indicated they would like to proceed with extubation and comfort measures. Plan: will go ahead and proceed with comfort care, extubation per family wishes.
--- NOTE | 2021-02-07 01:20 | PCM.PROG ---
called to see the patient after extubation. no pulse or spontaneous respirations. pupils fixed. time of 1:09am
[2021-02-07 07:06] LABS: ABG PH 7.21 (7.35-7.45); BEecf -3.9 (-2.0-3.0)
[2021-02-07 07:07] LABS: ABG O2 HGB 83.8 % (95-100); COHb 1.5 (0.5-1.5); MetHb 0.4 (0-1.5); TCO2 25.8 (19-24); tHb 11.1 g/dl (11.7-17.4)
--- NOTE | 2021-02-10 09:57 | HP ---
CHIEF COMPLAINT/DISCUSSION: Mrs. De is a 65 year old lady with a history of cardiac arrhythmia followed by Dr. Dumas who presented to the emergency department yesterday for a mild to moderate cough for the past few days with some shortness of breath. She was seen in the emergency department by Dr. Kang and myself. She was found to have evidence of pneumonia on x-ray. Her COVID 19 test was positive. This lady has not been vaccinated and she has not received any antibody infusion. This weekend she is admitted to the hospitalist service pending Dr. Dumas's return. PAST MEDICAL HISTORY: MEDICATIONS: Lisinopril Sotalol Plavix Fenofibrate Atorvastatin Aspirin Norvasc ALLERGIES: Codeine Imipramine Morphine PAST MEDICAL HISTORY: History of hypertension Hyperlipidemia Cardiac arrhythmia SOCIAL HISTORY: She is a previous smoker. Denies any alcohol or illicit drug use. She is . FAMILY HISTORY: Stroke Dementia. REVIEW OF SYSTEMS: No visual changes, tinnitus, chest pain, hemoptysis, abdominal pain, blood in the stool, urinary symptoms or seizures. Headache, Fatigue, Cough, Shortness of breath on exertion. PHYSICAL EXAMINATION: V/S: Temperature 98, pulse 94, respiratory rate 24, blood pressure 146/86 and oxygen saturation 92% HEENT: Pupils are round. NECK: Supple. CHEST: Scattered rhonchi and rales. CARDIOVASCULAR: Regular rate and rhythm. ABDOMEN: Soft, nontender. EXTREMITIES: Distal extremities without cyanosis or edema. ASSESSMENT: 1. COVID 19 pneumonia 2. Acute respiratory failure secondary to above PLAN: 1. Dr. Dumas is out of town. Apparently all the local hospitals, my understanding is there has been 15 different hospitals which have been contacted and no COVID beds are available so therefore the patient will be admitted to the hospitalist. 2. We will monitor oximetry 3. IV antibiotics 4. IV Remdesivir 5. Monitor labs Please see orders. MTDD
--- NOTE | 2021-02-10 10:36 | DS ---
PRINCIPAL DIAGNOSIS: 1. Acute respiratory failure secondary to #2 2. COVID 19 pneumonia DISCUSSION: 65 year old lady who presented to the emergency department with shortness of breath, cough and fatigue. She was found to be mild hypoxic and her nasal swab was found to be positive for COVID 19. Apparently my understanding is 15 different hospitals were contacted to transfer but there were no COVID bed available. She was placed on a waiting list appending this in Dr. Dumas absence the patient was admitted to the hospitalist services for further details see History and Physical. CLINICAL COURSE: The patient had continued home medications. The patient had IV antibiotics as well as oxygen. It should be noted that the patient did not receive any vaccine or antibody infusions. We had ordered Remdesivir however the patient had refused this. Initially she had some improvement in her oximetry however she continued to worsening with worsening hypoxia. She eventually was switched from nasal canula to Vapotherm and her oxygen status continued to decline and ultimately after discussion with family my understanding is that she underwent intubation and mechanical ventilation. Again, There were no beds available to transfer Mrs. De however she was on a waiting list. When I made rounds this evening we had found that her oximetry was in the 70s. We ordered a repeat chest x-ray which confirmed bilateral pneumothorax. Her , Kamran who is also a patient had been given Morphine and was in no position to make a determination concerning her disposition. I discussed the case with her daughter, Maria E who also discussed it with her brother and sister and they indicated at this point they wish for extubation and comfort measures. I was agreeable to this and I did not feel that placement of bilateral chest tubes would be of any benefit and this patient with COVID 19 pneumonia therefore incoordination with the family's wishes the patient was extubated and shortly thereafter the patient was noted to be and the family is aware. FRANKIE
--- NOTE | 2021-02-11 11:10 | PN ---
DATE OF SERVICE: 02/06/2021 SUBJECTIVE: In my absence I was out of town Maryjo De was hospitalized to [facility] under his services later on transferred to hospitalist services. On this date she is under hospitalist service. The patient has never been seen by me so far. Was never accepted under my service. Colette Flores, Nurse Practitioner has helped take care of this patient as she has done with other hospitalist patients. As usual all the orders that are given by Colette Flores,are co-signed by me, very likely orders she has given to take care of Maryjo De fell under my name and I have signed them without knowing it.I brought that to the attention of IT Department and the hospital administration that needs to be corrected. So far for past few years any orders given by Colette during hospital care even the attending maybe Hospitalist or physicians that covered me, are all co-signed by me in the past .THIS dictation should become part Maryjo De's medical record. MTDD
--- NOTE | 2021-02-16 05:58 | PCM.PROG ---
Date Seen by Provider: 02/03/21 Time Seen by Provider: 08:00 Subjective: 65 y/o female who was admitted on 01/31 with dx of COVID pneumonia with hypoxia.patient of Dr. Dumas. Says she doing somewhat better. Full code, Currently receiving symptomatic and supportive treatment. Not receiving Remdesivir tx/refused Objective: Vitals: T=101.5 F, P=140, R=20, KA=054/84, SPO2=80 HEENT: clear Neck: supple Lungs: diminished BS/congested CVS:HRRR Abdomen:SOFT NON TENDER Extremities: NEG EDEMA Neurological: AWAKE, OX3 Skin: W/D Lab/Tests/Diagnostic Imaging: [] (1) Pneumonia due to 2019-nCoV: Status: Acute Code(s): U07.1 - COVID-19; J12.82 - Pneumonia due to coronavirus disease 2019 SNOMED Code(s): 611083352210342966 (2) Acute respiratory failure due to COVID-19: Status: Acute Code(s): U07.1 - COVID-19; J96.00 - Acute respiratory failure, unspecified whether with hypoxia or hypercapnia SNOMED Code(s): 875623935 (3) Psychomotor restlessness: Status: Acute Code(s): R45.1 - Restlessness and agitation SNOMED Code(s): 109986122 Plan: CONTINUE CURRENT LINE OF THERAPY
--- NOTE | 2021-02-16 06:28 | PCM.PROG ---
Date Seen by Provider: 02/06/21 Time Seen by Provider: 07:45 Subjective: Continues having difficulty with respirations. Karan Sumner reviewed with DR TINAJERO. Discussed need for intubation. Reviewed Isabel nurse assistant program manager who indicates family (daughter ) who has indicated a desire for her to be intubated and be put on life support if necessary. I have spoke with her who is a patient as well. Risk complications of intubation and mechanical ventilation including that it ultimately cause her was discussed with him/consent given after conferring with his children who encouraged him to allow this "to give Mom a chance to live" Sheldon GOULD summoned to Dept or conscious sedation and intubatioin Objective: Vitals: T=101.5 F, P=140, R=20, UB=197/84, SPO2=80 HEENT: clear Neck: Supple.neg jvd Lungs: Gen diminished BS CVS: HR RRR Abdomen: Soft non tender Extremities:neg edema Neurological: diminished sensorium Skin: W/Dry] Lab/Tests/Diagnostic Imaging: [] (1) Pneumonia due to 2019-nCoV: Status: Acute Code(s): U07.1 - COVID-19; J12.82 - Pneumonia due to coronavirus disease 2019 SNOMED Code(s): 851685420547252769 (2) Acute respiratory failure due to COVID-19: Status: Acute Code(s): U07.1 - COVID-19; J96.00 - Acute respiratory failure, unspecified whether with hypoxia or hypercapnia SNOMED Code(s): 531121813 (3) Psychomotor restlessness: Status: Acute Code(s): R45.1 - Restlessness and agitation SNOMED Code(s): 316588287 Plan: Proceed with advanced respiratory support Condition Critical Prognosis -guarded
== END 2021-02-07 03:45 | disposition expired | DRG 177 ==
LOC: ED 18:20 → MEDSURG B 20:46 → SCU 02-03 13:38
PROVIDERS: ADMIT Family Medicine; ATTEND Family Medicine
DX: Z91.19 Patient's noncompliance with other medical treatment and regimen; Z79.899 Other long term (current) drug therapy; Z53.20 Procedure and treatment not carried out because of patient's decision for unspecified reasons; J96.00 Acute respiratory failure, unspecified whether with hypoxia or hypercapnia; U07.1 COVID-19; J12.82 Pneumonia due to coronavirus disease 2019; R45.1 Restlessness and agitation